=== PATIENT | male | born 1975 | race Caucasian/White ===

== ENCOUNTER 2018-03-14 01:36 | Emergency (ER) | payer MEDICAID ==
[2018-03-14] MEDS ORDERED: Diphtheria,Pertussis(Acell),Tetanus Vaccine 0.5 ML Syringe IM ONE (01:39)
[2018-03-14] MEDS ORDERED: Lidocaine 1% with EPINEPHrine 1:100,000 20 ML MDV INJECT ONE (01:39)
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
[2018-03-14] MEDS ORDERED: Bacitracin Oint 1 GM U/D Packet TOP ONE (02:03)
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
== END 2018-03-14 03:20 | disposition home or self-care (01) ==
LOC: MW.ED 01:36
DX: S05.42XA Penetrating wound of orbit with or without foreign body, left eye, initial encounter (principal); S09.90XA Unspecified injury of head, initial encounter; W22.8XXA Striking against or struck by other objects, initial encounter; Z23 Encounter for immunization; Z91.09 Other allergy status, other than to drugs and biological substances; Z88.5 Allergy status to narcotic agent
CPT/HCPCS: 12011; 70150; 70450; 90471; 90715; 99284; G0390